=== PATIENT | female | born 1985 | race Hispanic/Latino ===

== ENCOUNTER 2017-09-16 23:24 | Emergency (ER) | payer SELFPAY ==
[2017-09-16 23:30] VITALS: BP 142/85; PULSE 79; RESP 16; TEMP 98.1; O2SAT 99
--- NOTE | 2017-09-16 23:51 | ED PDOC ---
HPI: Female Pain Chief Complaint (Provider): LLQ pain History Per: Patient History/Exam Limitations: no limitations Onset/Duration Of Symptoms: Days Current Symptoms Are (Timing): Other (worse) Quality Of Discomfort: "Pain" Alleviating Factors: Rest Additional Complaint(s): 32 y/o with no significant PMhx presents to ED c/o LLQ pain for 1 week that is worse today. She states that standing or sitting up now elicits the pain. LMP sometime in July, denies vaginal bleeding or discharge, denies vomiting, nausea. Admits urinary frequency. Denies hematuria, lower back pain, headache. Abnormal Vaginal Bleeding: No Last Menstral Period: July : 3 Para: 2 Miscarriage: 1 <Timi Hoff - Last Filed: 09/17/17 01:25> <Edwin Garcia - Last Filed: 09/17/17 01:41> Time Seen by Provider: 09/16/17 23:32 Chief Complaint (Nursing): Female Genitourinary Supervising Attending Note - Attestation: I have personally seen and examined this patient.: Yes I have fully participated in the care of the patient.: Yes I have reviewed all pertinent clinical information, including history, physical exam and plan: Yes - Notes: Notes:: Mild TTP of LLQ, pain is for 6 days, very unlikely torsion, U/S not warranted at this time. Will treat for cystitis and have patient f/u as outpatient in [facility]. Return precautions discussed <Edwin Garcia - Last Filed: 09/17/17 01:41> Past Medical History Reviewed: Vital Signs Vital Signs: Last Vital Signs Temp 98.1 F 09/16/17 23:27 Pulse 79 09/16/17 23:27 Resp 16 09/16/17 23:27 BP 142/85 09/16/17 23:27 Pulse Ox 99 09/16/17 23:27 - Medical History PMH: No Chronic Diseases - Surgical History Other surgeries: Ovarian cyst - Family History Family History: States: Unknown Family Hx <Timi Hoff - Last Filed: 09/17/17 01:25> Vital Signs: Last Vital Signs Temp 98.1 F 09/16/17 23:27 Pulse 79 09/16/17 23:27 Resp 16 09/16/17 23:27 BP 142/85 09/16/17 23:27 Pulse Ox 99 09/17/17 01:25 <Edwin Garcia - Last Filed: 09/17/17 01:41> - Home Medications Home Medications: Ambulatory Orders Medication Instructions Recorded Ibuprofen 600 mg PO Q6 #30 tab 04/01/16 Ibuprofen [Motrin Tab] 600 mg PO Q6 #30 tab 09/17/17 Nitrofurantoin Macrocrystals 100 mg PO BID 5 Days cap 09/17/17 [Macrobid] - Allergies Allergies/Adverse Reactions: Allergies Allergy/AdvReac Type Severity Reaction Status Date / Time No Known Allergies Allergy Verified 09/16/17 23:27 Review of Systems ROS Statement: Except As Marked, All Systems Reviewed And Found Negative Gastrointestinal: Positive for: Abdominal Pain (LLQ) Genitourinary Female: Positive for: Frequency <Timi Hoff - Last Filed: 09/17/17 01:25> Physical Exam - Physical Exam Appears: Positive for: Non-toxic Skin: Positive for: Normal Color, Warm Eye Exam: Positive for: EOMI, PERRL Cardiovascular/Chest: Positive for: Regular Rate, Rhythm. Negative for: Gallop , Murmur Respiratory: Positive for: Normal Breath Sounds. Negative for: Crackles, Wheezing, Respiratory Distress Gastrointestinal/Abdominal: Positive for: Soft, Tenderness (LLQ). Negative for : Distended, Rebound Back: Negative for: L CVA Tenderness, R CVA Tenderness Extremity: Negative for: Tenderness, Pedal Edema, Calf Tenderness Neurologic/Psych: Positive for: Alert, Oriented. Negative for: Motor/Sensory Deficits <Timi Hoff - Last Filed: 09/17/17 01:25> - Laboratory Results Result Diagrams: 09/17/17 00:26 09/17/17 00:26 - ECG O2 Sat by Pulse Oximetry: 99 - Progress ED Course And Treament: Pain improved. Urinedip + for trace of blood WBC elevated CT shows L/Ovarian cyst, no kidney stones Will treat for poss UTI and patient needs F/U as outpatient. <Timi Hoff - Last Filed: 09/17/17 01:25> - Laboratory Results Result Diagrams: 09/17/17 00:26 09/17/17 00:26 <Edwin Garcia - Last Filed: 09/17/17 01:41> Medical Decision Making Medical Decision Making: Abd pain with frequency and missed period r/o vs UTI or renal stone F/U Urinedip and test <Timi Hoff - Last Filed: 09/17/17 01:25> Disposition - Disposition Disposition Time: 01:23 <Timi Hoff - Last Filed: 09/17/17 01:25> <Edwin Garcia - Last Filed: 09/17/17 01:41> - Clinical Impression Clinical Impression: Genitourinary Pain - Disposition [facility] Condition: STABLE Prescriptions: Ibuprofen [Motrin Tab] 600 mg PO Q6 #30 tab Nitrofurantoin Macrocrystals [Macrobid] 100 mg PO BID 5 Days cap Instructions: Urinary Tract Infection in Women (ED), Pelvic Pain in Women (ED) Forms: [facility] (Armenian)
[2017-09-17 00:30] LABS: BASO # 0.1 K/uL (0.0-0.2); BASO % 0.8 % (0.0-2.0); EOS # 0.3 K/uL (0.0-0.7); EOS % 1.9 % (0.0-4.0); HEMATOCRIT 39.9 % (34.0-47.0); LYMPH # 4.1 K/uL (1.0-4.3); LYMPH % 27.8 % (20.0-40.0); MEAN CELL VOLUME 84.4 fl (81.0-99.0); MEAN CORPUSCULAR HEMOGLOBIN 28.1 pg (27.0-31.0); MEAN CORPUSCULAR HGB CONC 33.3 g/dL (33.0-37.0); MEAN PLATELET VOLUME 9.4 fl (7.2-11.7); MONO # 0.7 K/uL (0.0-0.8); MONO % 4.6 % (0.0-10.0); NEUT # 9.6 K/uL (1.8-7.0); NEUT % 64.9 % (50.0-75.0); RED CELL DISTRIBUTION WIDTH 12.6 % (11.5-14.5); WHITE BLOOD COUNT 14.8 K/uL (4.8-10.8)
[2017-09-17 00:39] LABS: CALCIUM 9.2 mg/dL (8.4-10.2); CARBON DIOXIDE 23 mmol/L (22-30); CHLORIDE 106 mmol/L (98-107); GFR AFRICAN-AMERICAN > 60; GLUCOSE,RANDOM 98 mg/dL (65-105); SODIUM 138 mmol/l (132-148)
[2017-09-17 00:42] LABS: BLOOD UREA NITROGEN 18 mg/dl (7-17); POTASSIUM 4.3 MMOL/L (3.6-5.0)
--- NOTE | 2017-09-17 08:42 | CT ---
PROCEDURE: CT Abdomen and Pelvis without intravenous contrast HISTORY: LLQ pain, r/o stone COMPARISON: Transvaginal pelvic ultrasound examination 05/20/2016. TECHNIQUE: Helical CT of the abdomen and pelvis was performed without oral or intravenous contrast as per referring physician request.. Contrast Dose: None Radiation dose: Total exam DLP = 504.41 mGy-cm. This CT exam was performed using one or more of the following dose reduction techniques: Automated exposure control, adjustment of the mA and/or kV according to patient size, and/or use of iterative reconstruction technique. FINDINGS: LOWER THORAX: Unremarkable. LIVER: Unremarkable. No gross lesion or ductal dilatation. GALLBLADDER AND BILE DUCTS: Unremarkable. PANCREAS: Unremarkable. No gross lesion or ductal dilatation. SPLEEN: Unremarkable. ADRENALS: Unremarkable. No mass. KIDNEYS AND URETERS: Unremarkable. No hydronephrosis. No solid mass. VASCULATURE: Unremarkable. No aortic aneurysm. BOWEL: Unremarkable. No obstruction. No gross mural thickening. APPENDIX: Unremarkable. Normal appendix. PERITONEUM: Unremarkable. No free fluid. No free air. LYMPH NODES: Unremarkable. No enlarged lymph nodes. BLADDER: Wrist sigmoid colonic diverticular appreciate without diverticulitis pattern. REPRODUCTIVE: There is a 3.0 x 2.3 cm lucency at the medial portion of the left ovary measuring up to 19 Hounsfield units potentially representing a complex cyst. Soft tissue nodule is not excluded. Follow-up pelvic ultrasound is advised using transvaginal technique for further characterization. This was not seen the prior transvaginal pelvic ultrasound 05/20/2016. BONES: No acute fracture. OTHER FINDINGS: None. IMPRESSION: No radiodense urolithiasis, obstructive uropathy or perinephric reaction bilaterally. Urinary bladder appears unremarkable as well. Rare colonic diverticular seen in the sigmoid segment without diverticulitis. Further evaluation of the remaining abdominal pelvic viscera is limited due to the lack of oral and intravenous contrast agents. No bowel obstruction, mesenteric edema, ascites or free intraperitoneal gas is identified at this time. 3.0 cm lucency at the medial portion of the left ovary is appreciated possibly representing a complex cyst. Follow-up transvaginal pelvic ultrasound is advised for further characterization. Concordant preliminary report from [facility], 09/17/2017.
== END 2017-09-17 01:08 | disposition home or self-care (01) ==
LOC: H.ER 23:24
DX: N83.202 Unspecified ovarian cyst, left side (principal)

== ENCOUNTER 2018-10-21 16:25 | Emergency (ER) | payer OTHER ==
[2018-10-21 16:25] VITALS: BMI 28.7
--- NOTE | 2018-10-21 17:46 | ED PDOC ---
HPI: Abdomen Time Seen by Provider: 10/21/18 17:44 Chief Complaint (Nursing): Female Genitourinary Chief Complaint (Provider): abdominal pain History Per: Patient (33 y/o female here for evaluation of lower abdominal pain x 2 weeks intermittently associated with urinary frequency. Denies any dysuria/hematuria/fevers/back pain/vaginal bleeding.) Past Medical History Reviewed: Historical Data, Nursing Documentation, Vital Signs Vital Signs: Last Vital Signs Temp 98.3 F 10/21/18 16:35 Pulse 78 10/21/18 16:35 Resp 18 10/21/18 16:35 BP 134/75 10/21/18 16:35 Pulse Ox 99 10/21/18 16:35 - Family History Family History: States: Unknown Family Hx - Immunization History Hx Tetanus Toxoid Vaccination: No Hx Influenza Vaccination: No Hx Pneumococcal Vaccination: No - Home Medications Home Medications: Ambulatory Orders Medication Instructions Recorded RX: No Known Home Med 10/11/18 - Allergies Allergies/Adverse Reactions: Allergies Allergy/AdvReac Type Severity Reaction Status Date / Time No Known Allergies Allergy Verified 12/28/17 14:26 Review of Systems ROS Statement: Except As Marked, All Systems Reviewed And Found Negative Physical Exam - Reviewed Nursing Documentation Reviewed: Yes Vital Signs Reviewed: Yes - Physical Exam Appears: Positive for: Well, Non-toxic, No Acute Distress Head Exam: Positive for: ATRAUMATIC, NORMAL INSPECTION, NORMOCEPHALIC Skin: Positive for: Normal Color, Warm, DRY Eye Exam: Positive for: EOMI, Normal appearance, PERRL ENT: Positive for: Normal ENT Inspection Neck: Positive for: Normal, Painless ROM Cardiovascular/Chest: Positive for: Regular Rate, Rhythm Respiratory: Positive for: CNT, Normal Breath Sounds Gastrointestinal/Abdominal: Positive for: Normal Exam, Soft Back: Positive for: Normal Inspection Extremity: Positive for: Normal ROM Neurologic/Psych: Positive for: Alert, Oriented - Laboratory Results Result Diagrams: 10/21/18 18:06 10/21/18 18:06 Urine POC: Positive Urine dip results: Negative for: Leukocyte Esterase, Blood, Nitrate, Ketones, Glucose, Bilirubin - ECG O2 Sat by Pulse Oximetry: 99 Disposition - Clinical Impression Clinical Impression: Female genitourinary symptoms, Ovarian cyst - Patient ED Disposition Is Patient to be Admitted: Transfer of Care - Disposition [facility]errals: [facility] [Outside] [facility]] [facility] [Outside] Disposition: Transfer of Care Disposition Time: 20:30 Condition: STABLE Patient Signed Over To: Anthony Hernandez Handoff Comments: pending us report.
[2018-10-21 18:11] LABS: BASO # 0.1 K/uL (0.0-0.2); BASO % 1.2 % (0.0-2.0); EOS # 0.1 K/uL (0.0-0.7); EOS % 1.5 % (0.0-4.0); LYMPH # 3.6 K/uL (1.0-4.3); LYMPH % 36.3 % (20.0-40.0); MEAN CELL VOLUME 85.8 fl (81.0-99.0); MEAN CORPUSCULAR HEMOGLOBIN 29.5 pg (27.0-31.0); MEAN CORPUSCULAR HGB CONC 34.4 g/dL (33.0-37.0); MEAN PLATELET VOLUME 9.1 fl (7.2-11.7); MONO # 0.6 K/uL (0.0-0.8); NEUT # 5.5 K/uL (1.8-7.0); RBC 4.76 Mil/uL (3.80-5.20); RED CELL DISTRIBUTION WIDTH 13.1 % (11.5-14.5); WHITE BLOOD COUNT 9.9 K/uL (4.8-10.8)
[2018-10-21 18:16] LABS: SQUAMOUS EPITHIAL 1 /hpf (0-5); URINE BILIRUBIN NEGATIVE (NEGATIVE); URINE BLOOD NEGATIVE (NEGATIVE); URINE CLARITY CLEAR (Clear); URINE COLOR YELLOW (YELLOW); URINE GLUCOSE (UA) NEG (NEGATIVE); URINE LEUKOCYTE ESTERASE NEG Leu/uL (Negative); URINE PROTEIN NEGATIVE (NEGATIVE); URINE UROBILINOGEN 0.2-1.0 mg/dL (0.2-1.0)
[2018-10-21 18:20] LABS: ALB/GLOB RATIO 1.2 (1.0-2.1); ALBUMIN 4.5 g/dL (3.5-5.0); ALT/SGPT 20 U/L (9-52); AST/SGOT 24 U/L (14-36); BLOOD UREA NITROGEN 16 mg/dl (7-17); CALCIUM 9.8 mg/dL (8.4-10.2); GFR NON-AFRICAN AMERICAN > 60
[2018-10-21 21:52] VITALS: BP 155/110; RESP 14
--- NOTE | 2018-10-21 21:54 | ED PDOC ---
- Laboratory Results Result Diagrams: 10/21/18 18:06 10/21/18 18:06 Lab Results: Total Bilirubin 0.2 mg/dl (0.2-1.3) 10/21/18 18:06 AST 24 U/L (14-36) 10/21/18 18:06 ALT 20 U/L (9-52) 10/21/18 18:06 Alkaline Phosphatase 63 U/L (38-126) 10/21/18 18:06 Total Protein 8.3 G/DL (6.3-8.2) H 10/21/18 18:06 Albumin 4.5 g/dL (3.5-5.0) 10/21/18 18:06 Globulin 3.8 gm/dL (2.2-3.9) 10/21/18 18:06 Albumin/Globulin Ratio 1.2 (1.0-2.1) 10/21/18 18:06 Urine Color Yellow (YELLOW) 10/21/18 18:06 Urine Clarity Clear (Clear) 10/21/18 18:06 Urine pH 6.0 (5.0-8.0) 10/21/18 18:06 Ur Specific [place] 1.017 (1.003-1.030) 10/21/18 18:06 Urine Protein Negative mg/dL (NEGATIVE) 10/21/18 18:06 Urine Glucose (UA) Neg mg/dL (NEGATIVE) 10/21/18 18:06 Urine Ketones Negative mg/dL (NEGATIVE) 10/21/18 18:06 Urine Blood Negative (NEGATIVE) 10/21/18 18:06 Urine Nitrate Negative (NEGATIVE) 10/21/18 18:06 Urine Bilirubin Negative (NEGATIVE) 10/21/18 18:06 Urine Urobilinogen 0.2-1.0 mg/dL (0.2-1.0) 10/21/18 18:06 Ur Leukocyte Esterase Neg Avinash/uL (Negative) 10/21/18 18:06 Urine RBC (Auto) 1 /hpf (0-3) 10/21/18 18:06 Urine Microscopic WBC < 1 /hpf (0-5) 10/21/18 18:06 Ur Squamous Epith Cells 1 /hpf (0-5) 10/21/18 18:06 Beta HCG, Quant 7053.40 mIU/mL 01/14/19 18:06 Urine POC: Positive - ECG O2 Sat by Pulse Oximetry: 98 (RA) Pulse Ox Interpretation: Normal Medical Decision Making Medical Decision Making: Time: 2035 US RESULTS Findings: Real-time transabdominal and transvaginal ultrasound images of the pelvis were obtained. An anteverted uterus is noted, measuring 8.5 x 5.2 x 5.5 cm. The uterus demonstrates normal echotexture and echogenicity. The cervix measures 4.1 cm in length, and is closed. There is a single intrauterine gestational sac, with a mean sac diameter of 0.98 cm. A small yolk sac is noted. No renal pole is visualized at this time. The right ovary measures 2.5 x 1.0 x 1.9 cm. There is a complex, septated cyst in the right ovary measuring 1.0 x 0.7 x 1.2 cm. The left ovary measures 2.9 x 2.0 x 2.1 cm. A simple left ovarian cyst measures 2.2 x 1.7 x 1.5 cm. No adnexal masses are seen. Color Doppler flow is seen within both ovaries. There is no evidence of free fluid. Impression: 1. Single intrauterine gestational sac without evidence of a pole at this time. A normal yolk sac is noted. No evidence of subchorionic hemorrhage. This is likely because of the early age of the gestation. If there is further clinical concern, follow-up with serial serum beta hCG levels would be recommended. 2. Left ovarian corpus luteum cyst. 3. Complex right ovarian cyst. Electronically signed on Oct 21, 2018 8:36:38 PM EST by: Daniel Tierney M.D., MBA Certified By [employer] & [employer] Fellowship Trained MRI and CT Specialist Disposition Doctor Will See Patient In The: Office Counseled Patient/Family Regarding: Diagnosis, Need For Followup - Clinical Impression Clinical Impression: Female genitourinary symptoms, Ovarian cyst - POA Present On Arrival: None - Disposition [facility] [Outside] Disposition: Routine/Home Disposition Time: 23:03 Condition: STABLE Forms: [employer] (Chinese)
[2018-10-21 23:22] VITALS: PULSE 82; TEMP 98.1
--- NOTE | 2018-10-22 10:58 | US ---
Date of service: 10/21/2018 PROCEDURE: Obstetrical ultrasound examination HISTORY: abdominal pain in COMPARISON: Not available TECHNIQUE: Transabdominal and transvaginal FINDINGS: There is a single intrauterine gestation identified. The mean sac diameter is 10 mm, out of range for age determination. A yolk sac is identified measuring 3 mm. There is no pole identified at this time. There is no detectable cardiac activity. There is no subchorionic hemorrhage. The uterus measures 8.5 x 5.5 x 5.2 cm. There is no uterine mass. The cervix measures 4.1 cm in length and is closed. The right ovary measures 2.5 x 1.9 x 1.0 cm. Normal flow demonstrated. No mass. Left ovary measures 2.9 x 2.1 x 2.0 cm. There is a 2.2 cm corpus luteum. Normal flow is demonstrated. There are no adnexal masses. There is no free fluid in the cul-de-sac. IMPRESSION: Intrauterine gestational sac. Viability cannot be determined at this early stage of gestation. No subchorionic hemorrhage. Left ovarian corpus luteum. Follow-up with transvaginal pelvic ultrasound and serial beta HCG evaluation is advised. The preliminary findings for this examination were reported by [facility] at 8:36 p.m. on 10/21/2018. There is concurrence of this report with the preliminary findings.
[2018-10-24 18:25] VITALS: O2SAT 99
== END 2018-10-21 23:20 | disposition home or self-care (01) ==
LOC: H.ER 16:25
DX: O26.899 Other specified pregnancy related conditions, unspecified trimester (principal); N83.201 Unspecified ovarian cyst, right side